=== PATIENT | male | born 1925 | race Caucasian/White ===

== ENCOUNTER → 2016-03-07 | Outpatient (CLI) | payer MEDICARE, OTHER ==
[2014-12-20 15:09] VITALS: BP 77/56
[~2016-03-07] MED LIST: APIX5TAB PO; ASCO500T2 PO; ASPI-482 PO; CA C1TAB42 PO; CARV3.12 PO; FERR325T58 PO; FURO-68 PO; FURO-69 PO; FURO20TA3 PO; HYDR12.58 PO; LISI-334 PO; LISI10TA2 PO; LISI1TAB5 PO; MULT1TAB52 PO; OMEP20CA9 PO; ONDA8TAB9 PO; POTA20TA12 PO; SENN8.6T99 PO; SIMV40TA PO
--- NOTE | 2016-03-07 10:14 | RAD ---
Indication restage lymphoma. PET/CT was performed from the skull through the proximal thigh. CT was performed primarily for localization and attenuation purposes as opposed to primary diagnostic purposes. The blood sugar during the examination was 104. 14.6 uCi of FDG was administered. Comparison is made to an exam 09/07/2015. On CT the visualized brain appears unremarkable. Significant finding in the neck is not apparent. Known enlargement of the right submandibular gland is noted, similar. There is no significant axillary adenopathy. Significant hilar or mediastinal adenopathy is not seen. Postoperative changes are noted associated with the thoracic aorta. A dominant parenchymal mass in either lung is not seen. In the abdomen known mesenteric mass is noted appearing similar. Areas of mesenteric calcification are noted also appearing similar. And acute or unexpected finding in the abdomen or pelvis is not seen. On PET the FDG is physiologically distributed in the visualized brain. Slightly FDG avid right submandibular gland is noted similar to the previous exam. Mildly FDG avid right hilar lymph nodes are noted. The FDG activity is slightly more pronounced than previously . Maximum SUV is now 5.5 whereas before it was 4. There is minimally avid FDG uptake in a left hilar lymph node. No abnormal FDG activity is seen in the abdomen or pelvis. There is a minimally avid area of FDG uptake at the right lung base probably reflecting nonspecific inflammation. No definite mass is seen in this area on CT. Minimal volume loss is demonstrated likely reflecting atelectasis IMPRESSION: No definite evidence of tumor recurrence. Unchanged mesenteric mass. No abnormal FDG activity is seen within the mass. Mildly FDG avid hilar lymph nodes is nonspecific. The hilar activity is slightly more pronounced than previously Mildly FDG avid, enlarged, right submandibular gland similar to the previous exam
== END | disposition home or self-care (01) ==
LOC: PETSC 07:05
PROVIDERS: ATTEND Internal Medicine Hematology & Oncology
DX: C83.30 Diffuse large B-cell lymphoma, unspecified site (principal)
CPT/HCPCS: 78815; A9552